=== PATIENT | female | born 1990 | race African-American/Black ===

== ENCOUNTER → 2017-06-23 | Outpatient (CLI) | payer OTHER ==
[~2017-06-23] MED LIST: DEXTCAP23 PO; FERR1TAB13 PO; IUD'IUD INT UTER; SERT-234 PO
[2017-06-23 13:32] LABS: BASO % 0.6 %; BASO ABS # 0.02 K/uL (0-0.2); EOS % 2.8 %; HEMATOCRIT 37.3 % (37-47); IG# 0.01 K/uL (0.00-0.02); LYMPH % 41.6 %; MEAN CELL VOLUME 85.6 fL (80-100); MEAN CORPUSCULAR HEMOGLOBIN 27.5 pg (25-34); MEAN CORPUSCULAR HGB CONC 32.2 g/dl (32-36); MEAN PLATELET VOLUME 10.8 fL (7.4-10.4); MONO % 8.9 %; MONO ABS # 0.32 K/uL (0.11-0.59); NEUT % 45.8 %; NEUT ABS # 1.66 K/uL (1.4-6.5); PLATELET COUNT 245 K/uL (130-400); RED CELL DISTRIBUTION WIDTH CV 14.7 % (11.5-14.5); RED CELL DISTRIBUTION WIDTH SD 45.8 fL (36.4-46.3); WHITE BLOOD COUNT 3.61 K/uL (4.8-10.8)
[2017-06-23 13:58] LABS: ALBUMIN 3.6 gm/dl (3.4-5.0); ALT/SGPT 14 U/L (12-78); BLOOD UREA NITROGEN 8 mg/dl (7-18); CALCIUM 8.8 mg/dl (8.5-10.1); CARBON DIOXIDE 26 mmol/L (21-32); CREATININE 0.71 mg/dl (0.60-1.20); GLUCOSE 96 mg/dl (70-99); POTASSIUM 3.8 mmol/L (3.5-5.1); SODIUM 139 mmol/L (136-145)
[2017-06-23 14:08] LABS: ALKALINE PHOSPHATASE 51 U/L (45-117); AST/SGOT 11 U/L (15-37)
== END | disposition home or self-care (01) ==
LOC: C.LABBC 11:58
PROVIDERS: ATTEND Neuromusculoskeletal Medicine & OMM
DX: R53.83 Other fatigue (principal); D64.9 Anemia, unspecified